=== PATIENT | female | born 1950 | race Caucasian/White ===

== ENCOUNTER 2016-12-26 06:34 | Inpatient (IN) | payer MEDICARE ==
--- NOTE | 2016-12-19 12:20 | NUR ---
JOINT CAMP Patient attended Joint Camp at [facility] in preparation for left knee replacement. Patient is from home and has 5 stairs into the home and 13 stairs inside the home. Patient's Rahul Funk will be assisting after surgery and will be the one to transport patient home on day of discharge. Patient has never received Home Health services, [facility] or Outpatient therapy. Patient has bath bench, Elevated toilet seat and walker at home.
[2016-12-26] VITALS (14 sets, daily range): BP systolic 127–175; BP diastolic 53–96; PULSE 57–84; RESP 12–18; O2SAT 92–98
[~2016-12-26] VITALS: Ht 152.4 cm; Wt 92.4 kg
[~2016-12-26 06:34] MED LIST: ALBU8.5H2 INHALATION; ASPI-973 PO; Bupivacaine Liposome 1.3% 20 mL Inj INFILTRATE ONE; CeFAZolin 2 Gm/50 mL D5W IV Premix IV ONE; DILT180C53 PO; FOLI0.4T2 PO; HYG25 PO; LOSA100T29 PO; Lactated Ringer's 1,000 ML IV SCH; Vancomycin Inj 1,750 MG in 0.9% Sodium Chloride 500 ML IV ONE; [UNRECOGNIZED DRUG - OTHER]
[2016-12-26] MEDS ORDERED: Vancomycin 1,000mg/200 mL NS IV ONE (06:38)
[2016-12-26] MEDS ORDERED: Lactated Ringer's 1,000 ML IV ONE (06:45)
--- NOTE | 2016-12-26 06:56 | PCM.HPANE ---
Patient Data Surgeon Admitting Provider: Attending Provider:Nirmal Pruitt MD Primary Care Physician:Rigo Harris MD Other Provider:[facility] Reason for Visit Left Knee Arthritis Ht/WT & BMI Height (Feet): 5 Height (Inches): 0 Weight (Kilograms): 91.62 Body Mass Index 39.00 Allergies Coded Allergies: latex (Verified Allergy, Intermediate, Rash, 12/20/16) Uncoded Allergies: NITROFURAN (Allergy, Severe, Hives, 12/20/16) PENICILLIN (Allergy, Mild, Nausea and vomition, 12/20/16) Past Anesthesia History Anesthesia History: Denies:: Abnormal Airway, Anesthesia Reactions, Difficult Intubation, Fam Anesthesia Reaction, Fam Malignant Hypertherm, Malignant Hyperthermia Diabetes History Hx Diabetes?: No MRSA MRSA: No Medications Blood Thinner: Aspirin Last Dose Blood Thinner: Dec 20, 2016 Reported Medications Folic Acid 0.4 Mg Tablet0.4 Mg PO 12/20/16 [cranb] No Conflict Check 12/20/16 Albuterol HFA (Proair HFA)8.5 Gm Hfa.aer.ad2 Puffs INHALATION Q4H #1 INHALER 12/20/16 Losartan Potassium 100 Mg [id number] Mg PO 12/20/16 Chlorthalidone 25 Mg [id number] Mg PO DAILY #30 TABLET 12/20/16 Diltiazem ER (Cartia XT)180 Mg Cap.[id number] Mg PO DAILY 12/20/16 Aspirin 81 Mg [id number] Mg PO DAILY Ref 0 12/20/16 History History of ENT Problems?: Yes HEENT History: Denies:: Abnormal Airway Cataracts Difficult Intubation Dysphagia Glaucoma Hearing Problem Sinus Problem TMJ Denture Type: None Partial- Upper Partial- Lower Teeth Condition: Within Normal Limits Hx of Heart Problems?: Yes Cardiovascular History: Positive for:: Hypertension (Chlorthalidone, Cartia) Denies:: Abdominal Aortic Aneurism Chest Pain Congestive Heart Failure Coronary Artery Disease Edema Heart Murmur Irregular Heartbeat Pacemaker Peripheral Vascular Rheumatic Fever Thrombophlebitis Valvular Heart Disease Hx of Respiratory Problem?: Yes Respiratory History: Positive for:: Use of Inhalers / NEBS (Pro Air) Denies:: Asthma COPD Chest Surgery Cough Dyspnea Emphysema Hemoptysis Oxygen Administration Pneumonia Pulmonary Embolism Tuberculosis Use of C-PAP Machine Hx Neurologic Problems?: No Hx of GI Problems?: No Gastrointestinal History: Denies:: Cirrhosis Diverticulitis Gall Bladder Disease Gastroesphageal Reflux Gastrointestinal Bleeding Heartburn Hepatitis Hiatal Hernia Liver Disease Rectal Bleeding Hx of Problems?: No Genitourinary History: Denies:: HX of Hemodialysis Kidney Stones Urinary Tract Infection HX of Peritoneal Dialysis: No Skin History: Denies:: History Skin Disorders? Pressure Ulcers Hx Musculoskeletal Problems?: Yes Musculoskeletal History: Positive for:: Degenerative Joint (reason for admission) Osteoarthritis (knee) Denies:: Back Injury Fibromyalgia Joint Replacement Musculoskeletal Trauma Myasthenia Gravis Rheumatoid Arthritis Systemic Lupus Hx of Psycho/Social Problems?: No Hx Surgeries?: Yes (left arm elbow repair 30 yrs ago) Hx Any Other Health Problems?: Yes Other History: Denies:: Cancer Endocrine Disease Hospitalization Thyroid Disease History Blood Transfusions: Positive for:: Accept Blood Products? Denies:: Blood Transfuse Reaction Blood Transfusions Hx Diabetes: No Stop/Bang S-Snoring: Do You Snore Loudly: No T-Tired: feel tired, fatigued: No O-Obsered: Observed not breath: No P-Blood Pressure: treated: Yes A- Age over 50: Yes N- Neck Large Circumference: No G- Gender Male: No Risk Assessment Category Category 1A: Patient has history of documented sleep apnea, and HAS NOT received any narcotic, sedative or anesthesia administration during this stay. Category 1B: Patient has history of documented sleep apnea, and HAS received any narcotic , sedative or anesthesia administration during this stay Category 2: Patient has SUSPECTED Obstructive Sleep Apnea, and HAS received any narcotic , sedative or anesthesia administration during this stay. Category 3: Patient has SUSPECTED Obstructive Sleep Apnea and HAS NOT received narcotic, sedative or anesthesia administration during this stay. Category 4: Outpatient in Procedural Areas with known sleep apnea or who screen positive for High Risk via the STOP/BANG questionnaire. Exam Exam General Appearance: Alert, Oriented X3, Cooperative, Moderate Distress HEENT/AIRWAY: MP 2, Neck Movement (from), Mouth Opening (wnl) Lungs: Clear to Auscultation Heart: Exam Unremarkable Plan Impression Patient chart reviewed, patient interviewed and anesthestic plan with risks, benefits, and alternatives discussed, and informed consent obtained. ASA Physical Status: ASA2 Mod Systemic Disease Anesthetic Plan: Regional Block, SAB Bene/Risks/Altern/Consents: Yes HP Complete Prior to Induction: Yes Benny Perez MD Dec 26, 2016 06:56
[2016-12-26] MEDS ORDERED: Bupivacaine Liposome 1.3% 20 mL Inj INFILTRATE ONE (07:54)
[2016-12-26] MEDS ORDERED: Bupivacaine-MPF 0.25%/EPI 30 mL Inj INFILTRATE ONE (07:54)
[2016-12-26] MEDS ORDERED: Gentamicin 40 mg/mL 2 mL Inj IRRIGATION ONE (07:54)
[2016-12-26] MEDS ORDERED: Lactated Ringer's 1,000 ML IV SCH (08:04)
[2016-12-26] MEDS ORDERED: Lactated Ringer's 500 ML IV PRN (08:04)
[2016-12-26] MEDS ORDERED: Dexamethasone 4 mg/mL Inj IVPUSH PRN (08:05)
[2016-12-26] MEDS ORDERED: fentaNYL-PF 50 mCg/mL 2 mL Inj IVPUSH PRN (08:05)
[2016-12-26] MEDS ORDERED: HYDROmorphone 1 mg/mL Inj IVPUSH PRN (08:05)
[2016-12-26] MEDS ORDERED: Phenylephrine 10,000 mCg/mL Inj IVPUSH PRN (08:05)
[2016-12-26] MEDS ORDERED: EPHEDrine Sulfate 50 mg/mL Inj IVPUSH PRN (08:05)
[2016-12-26] MEDS ORDERED: hydrALAZINE 20 mg/mL Inj IVPUSH PRN (08:05)
[2016-12-26] MEDS ORDERED: Ondansetron 2 mg/mL 2 mL Inj IVPUSH PRN (08:05)
[2016-12-26] MEDS ORDERED: Labetalol 5 mg/mL 4 mL Inj IV PRN (08:05)
[2016-12-26] MEDS ORDERED: Atropine 0.4 mg/mL Inj IVPUSH PRN (08:05)
[2016-12-26] MEDS ORDERED: Albuterol 2.5 mg/3 mL Inhalation Solution NEB PRN ×2 (09:40→11:15)
[2016-12-26 10:25] LABS: APPEARANCE,URINE HAZY (CLEAR,HAZY); COLOR,URINE STRAW (YELLOW)
[2016-12-26 10:26] LABS: OCCULT BLOOD,URINE NEGATIVE (NEGATIVE); PH,URINE 6.5 (5.0-8.0); UROBILINOGEN,URINE NORMAL (NORMAL)
--- NOTE | 2016-12-26 10:34 | OP ---
[address] [address] OPERATIVE REPORT PATIENT: IVANIA FRANK : 1950 MR#: [id number] ADMIT: 12/26/2016 JOB ID: [id number] DATE OF SURGERY: 12/26/2016 SURGEON: Nirmal Pruitt M.D. DELIVERY TECHNICIAN: eLx Chaney. Stain Sprayer required due to the complexity of the operation. PREOPERATIVE DIAGNOSIS(ES): Arthritis left knee with a large lateral femoral condylar lesion. POSTOPERATIVE DIAGNOSIS(ES): Arthritis left knee with a large lateral femoral condylar lesion. PROCEDURE: Left total knee replacement. SPECIMENS: Biopsy specimen sent from a lesion for pathological analysis. DESCRIPTION OF PROCEDURE: The patient was prepped and draped in the usual sterile fashion. An anteromedial approach made to the knee. An effusion was encountered. The patella was benign in appearance. The patella was subluxed laterally, cut transversely, sized to a 29 and drill holes were made. Patellar protection plate utilized. Drill hole placed in the distal femur 5 degree valgus. Distal femoral cut was made. The femur was sized to a 5 chamfer cutting block, which was fixed in appropriate position, rotation and chamfer cuts were made. All meniscal tissue and osteophytes were subsequently excised from the knee. The tibial guide was placed and a standard tibial cut was made. The tibia was sized to D Persona tibial component. Trial reductions performed. A 11 mm polyethylene produced excellent range of motion, balance, soft tissue tension and alignment. Pressurized lavage was utilized followed by pressurized cementation of the components. Excess cement removed during the curing process. Final construct assembled. Tourniquet was let down. Hemostasis was achieved and a deep Hemovac drain was left. The wounds were then bathed in dilute Betadine solution per protocol which was thoroughly lavaged. Deep closure with #2 Quill deep followed by 2-0 Vicryl, 3-0, and a 4-0 intracuticular stitch. Standard postoperative plan with followup on biopsy results. 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
--- NOTE | 2016-12-26 10:35 | PCM.ANEP1 ---
Post Anesthesia PACU Phase 1 Assessment Vital Signs Vital Signs Date Time Temp Pulse Resp B/P Pulse Ox O2 Delivery O2 Flow Rate FiO2 12/26/16 10:30 57 12 136/63 96 Nasal Cannula 12/26/16 10:25 36.2 60 14 141/56 95 Nasal Cannula 2 12/26/16 10:15 58 12 148/57 95 Nasal Cannula 2 12/26/16 10:10 65 14 157/67 97 Nasal Cannula 2 12/26/16 10:05 60 16 127/82 97 Nasal Cannula 2 12/26/16 10:02 12 98 12/26/16 10:00 59 15 156/53 96 Nasal Cannula 2 12/26/16 09:55 79 14 139/96 98 Nasal Cannula 2 12/26/16 09:50 74 14 148/87 97 Nasal Cannula 2 12/26/16 09:45 36.0 67 14 136/62 92 Room Air 12/26/16 07:11 36 65 17 175/61 97 Room Air Anesthetic Administered: Regional Block, SAB Level of Alertness: Awake, talking CRUZ's with Equal Strength: No Pain: No Nausea or Vomiting: No CV Function & Hydration Stable: Yes Airway Device: Oxygen Delivery: Room Air Lungs: Clear to Auscultation, Normal Air Movement Dermatome Level: L3,4 (Thigh) PACU Phase 2 Assessment Complications: No Follow up Care: No Patient Instructions Provided: N/A Benny Perez MD Dec 26, 2016 10:35
--- NOTE | 2016-12-26 10:50 | DRSVH ---
PROCEDURE: X-RAY LEFT KNEE, ONE OR TWO VIEWS ([id number]) INDICATIONS: CHECK PLACEMENT POST TOTAL KNEE TECHNIQUE: 2 view(s) of the knee acquired. [facility]2016, 13: 17. FINDINGS: Bones: Patient is status post knee joint arthroplasty. Hardware components are in expected position s. Visualized bony structures are intact. No periprostatic fractures. Soft tissues: Overlying postoperative changes are noted. No unexpected radiopaque foreign bodies ar e evident. IMPRESSION: Expected postoperative changes related to a left knee arthroplasty. Dictated by: Matt Tripp M.D. on 12/26/2016 at 9:47 Approved by: Matt Tripp M.D. on 12/26/2016 at 9:49
[2016-12-26] MEDS ORDERED: Ondansetron 8 mg ODT Tablet PO PRN (11:25)
[2016-12-26] MEDS ORDERED: LORazepam 0.5 mg Tablet PO PRN (11:25)
[2016-12-26] MEDS ORDERED: diphenhydrAMINE 25 mg Capsule PO PRN (11:25)
[2016-12-26] MEDS ORDERED: Alum-Mag Hydrox-Simeth 30 mL Suspension PO PRN (11:25)
[2016-12-26] MEDS ORDERED: oxyCODONE-Acetamin 5-325 mg Tablet PO PRN (11:25)
[2016-12-26] MEDS ORDERED: Sodium Biphos-Phos 133 mL Enema RECTAL PRN (11:25)
[2016-12-26] MEDS ORDERED: MetoCLOpramide 5 mg/mL 2 mL Inj IV PRN (11:25)
[2016-12-26] MEDS ORDERED: Ondansetron 2 mg/mL 2 mL Inj IV PRN (11:25)
[2016-12-26] MEDS ORDERED: Senna-Docusate 8.6-50 mg Tablet PO PRN (11:25)
[2016-12-26] MEDS ORDERED: Magnesium Hydroxide 10 mL Oral Concentration PO PRN (11:25)
--- NOTE | 2016-12-26 11:30 | NUR ---
Admit to [facility] Pt arrived on [facility] from PACU at 1100 hrs. Pt oriented x 3. Pt did not c/o pain. VSS. C/o slight nausea but declined anti-nausea medication. Spouse at the bedside. Removed pillow that was beneath pt's left knee. Later repositioned pillow beneath her lower leg to float heels and provide comfort. Gave pt ice water. Hemovac remains clamped until 1430 hrs. Care continues.
[2016-12-26] MEDS: Lactated Ringer's 1,000 ML IV SCH (11:34)
[2016-12-26] MEDS ORDERED: Propofol 10,000 mCg/mL 20 mL Inj ONE (12:07)
[2016-12-26] MEDS ORDERED: Ondansetron 2 mg/mL 2 mL Inj ONE (12:07)
[2016-12-26] MEDS ORDERED: fentaNYL-PF 50 mCg/mL 2 mL Inj ONE (12:07)
[2016-12-26] MEDS ORDERED: Ropivacaine-PF 0.5% 30 mL Inj ONE (12:07)
[2016-12-26] MEDS: HYDROcodone-APAP 5-325 mg Tablet PO PRN (12:24)
[2016-12-26] MEDS: Ketorolac 15 mg/mL Inj IV SCH ×2 (14:50→20:10)
--- NOTE | 2016-12-26 16:06 | NUR ---
Evaluation completed. Please go to "Notes" then click on "Assessments and Notes" (bottom left corner of screen). Then select appropriate discipline tab on top of screen.
[2016-12-26] MEDS: CeFAZolin 2 Gm/50 mL D5W IV Premix IV SCH (16:12)
[2016-12-27 00:10] VITALS: BP 152/75; PULSE 78; RESP 17; O2SAT 96
[2016-12-27] MEDS: CeFAZolin 2 Gm/50 mL D5W IV Premix IV SCH (00:51)
[2016-12-27] MEDS: Lactated Ringer's 1,000 ML IV SCH ×2 (02:09→20:36)
[2016-12-27] MEDS: Ketorolac 15 mg/mL Inj IV SCH (02:09)
--- NOTE | 2016-12-27 03:16 | NUR ---
Pain Rating pain to left knee 2-08/30. Receiving scheduled IV Toradol with effective results. Has refused multiple offers for PRN pain medications to help with breakthrough pain. Education provided in regards to pain medications/pain relief. States understanding and will ask for pain meds if/when needed. Addendum: 12/27/16 at 0543 by MITUL SAGE RN IVF total this shift= 1127 ml. Pump not cleared on previous shift.
[2016-12-27 05:10] VITALS: BP 166/77; PULSE 90; RESP 19; O2SAT 92
[2016-12-27 06:03] LABS: BASOPHILS % (AUTO) 0.3 % (0-3); EOSINOPHILS % (AUTO) 1.8 % (0-5); Mean Corpuscular Hemoglobin 28.9 pg (27.0-35.0); Mean Corpuscular Volume 87.3 fL (81-100); NEUTROPHILS % (AUTO) 74.8 % (40-74); Platelet Count 174 bil/L (150-400)
[2016-12-27] MEDS ORDERED: Vancomycin Inj 1,250 MG in 0.9% Sodium Chloride 250 ML IV ONE (07:00)
[2016-12-27] MEDS ORDERED: Diltiazem CD 180 mg ER24 Capsule PO SCH ×2 (08:30→21:00)
[2016-12-27] MEDS: HYDROcodone-APAP 5-325 mg Tablet PO PRN ×3 (08:47→23:50)
[2016-12-27] MEDS: hydrOXYzine Pamoate 25 mg Capsule PO PRN ×2 (11:25→21:58)
--- NOTE | 2016-12-27 13:32 | PCM.PNORTH ---
Subjective Date of Service: Dec 27, 2016 Visit Information: Reason for Visit Left Knee Arthritis Surgery/Surgery Date L TKA 12/26/16 Post-Op Day # Date of Admission: Dec 26, 2016 at 10:47 Hospital Day # Subjective Found patient awake and alert this morning and resting comfortably in bed. No complaints of pain at this time. Discussed pain control with patient and possible change in medication. Also advised patient that she needs to take this medication regularly to maintain her pain control and should not wait an extended period of time in between doses or she will continue to have pain control problems. We have discussed the fact that she is prepared for outpatient physical therapy to begin soon after discharge. She and her are planning for their discharge likely tomorrow and I have encouraged him to participate with physical therapy and to discuss getting into his pickup truck and possibly practicing this with a step. Postop General: No Shortness of Breath, No Chest Pain Pain Management: PO Objective Exam Objective Alert and oriented 3 and pleasant. Interoperative dressing is clean dry and intact. Calf and thigh are soft and nontender. Toe wiggle and sensation are intact at the left lower extremity distally Srivastava catheter is absent Hemovac drain is present and is discontinued today. Right lower extremity SCD in place. Limited gait (a few steps) with formal physical therapy Vital Signs and I/O Vital Sign - Last Date Time Temp Pulse Resp B/P Pulse Ox O2 Delivery O2 Flow Rate FiO2 12/27/16 13:01 Room Air 12/27/16 05:10 36.9 90 19 166/77 92 12/26/16 10:25 2 Intake and Output 12/26/16 12/26/16 12/27/16 Cumulative From/Thru 15:00 23:00 07:00 12/20/16 11:07 - 12/27/16 05:42 Intake Total 860 ml 640 ml 2327 ml 4327 ml Output Total 160 ml 210 ml 1000 ml 1370 ml Balance 700 ml 430 ml 1327 ml 2957 ml Intake Oral 640 ml 1200 ml 1840 ml IV Total 860 ml 1127 ml 2487 ml Output Urine Total 110 ml 200 ml 1000 ml 1310 ml Drainage Total 10 ml 0 ml 10 ml Estimated Blood Loss 50 ml 50 ml Lab & Micro Results Laboratory Tests Test 12/27/16 05:35 White Blood Count 6.1th/mm3 (3.8-10.1) Red Blood Count 3.77mil/mm3 (3.90-5.20) Hemoglobin 10.9g/dL (12.0-15.6) Hematocrit 32.9% (35.0-46.0) Mean Corpuscular Volume 87.3fL (81-100) Mean Corpuscular Hemoglobin 28.9pg (27.0-35.0) Mean Corpuscular Hemoglobin Concent 33.1% (32.0-37.0) Red Cell Distribution Width 14.1% (12.3-15.4) Platelet Count 174bil/L (150-400) Neutrophils (%) (Auto) 74.8% (40-74) Lymphocytes (%) (Auto) 15.6% (14-46) Monocytes (%) (Auto) 7.0% (4-12) Eosinophils (%) (Auto) 1.8% (0-5) Basophils (%) (Auto) 0.3% (0-3) Microbiology 12/26/16 Urine Culture - Preliminary, Resulted Result Diagram: 12/27/16 0535 General Appearance: Alert, Oriented X3, Cooperative, No Acute Distress Extremities: No Compartment Syndrom Noted, Thigh & Calf Soft/Nontender Postop Sensory Motor: Distal Motor Intact, Movement in Toes, Distal Sensation Intact SURGICAL WOUND : Drain Location Body Site: Knee Wound Drainage Type: Hemovac Activity: Activity per PT, Ambulate with PT (weightbearing as tolerated on the left lower extremity using front wheeled walker) Catheters: None Assessment & Plan Impression Patient is a 66-year-old female who is undergone a left total knee arthroplasty performed on 12/26/2016 Dr. Nirmal Pruitt. Patient had refused pain medication for a number of hours postoperatively and has experienced increased pain on resolution of her block. Problems: Plan Postop day #1 from left total knee arthroplasty performed on 12/26/[address] Nirmal Pruitt. Continue weightbearing as tolerated on the left lower extremity using front- wheeled walker. Continue formal physical therapy for mobility, gait and safety. Patient has arranged outpatient therapy to begin soon after discharge. Continue by mouth pain medication in the form of Percocet 5 and Vistaril. Patient has had pain control issues thus far and we will institute the aforementioned pain control regime. Continue ASA 81 mg EC by mouth twice a day 6 weeks postop for DVT prophylaxis. Hemovac drain is in an working today and is discontinued this afternoon. Nursing please fit bilateral thigh-high JABIER hose as ordered today. Fit right today and fit left on postop day 2 after dressing change. Nursing please move patient Percocet 5/325 and Vistaril for pain control. Nursing: A prescription for anticipated pain control medications is placed in chart and if these are working for the patient is maybe given to the patient's so that he may require these today so that on discharge they will be available to them. Follow-up in 2 weeks at [facility] orthopedic clinic on prearranged appointment with mid-level provider for wound check and suture removal. Follow-up in 6 weeks at [facility] orthopedic clinic on prearranged appointment with Dr. Nirmal Pruitt with x-ray two-view left knee on arrival. Anticipate discharge to home with spouse's caregiver on postop day #2, 2016. VTE Prophylaxis: SCDs (right lower extremity only), JABIER Hose (bilateral thigh- high JABIER hose left to be fitted on postop day #2 post bandages changed), Other ( ASA 81 mg EC by mouth twice a day 6 weeks postop for DVT prophylaxis) Ryne Caldwell PA-C Dec 27, 2016 13:32
[2016-12-27 15:15] VITALS: BP 152/76; PULSE 84; RESP 18; O2SAT 94
--- NOTE | 2016-12-27 16:52 | NUR ---
Nausea Pt reported that she felt nauseous last night and thought that it was caused by the hydrocodone. Administered 5 mg PO oxycodone for pain today with good results. Pt reports the nausea is gone. Pt is getting good pain relief with the oxycodone.
[2016-12-27 20:28] VITALS: BP 183/81; PULSE 99; RESP 20; O2SAT 95
[2016-12-27 23:52] VITALS: BP 160/72; PULSE 77
--- NOTE | 2016-12-28 03:19 | NUR ---
Pain Required 2 [place] with Vistaril for pain control, reports improved pain management. Able to transfer and walk with FWW to BR with one to assist. Cannot tolerate SCD to affected leg as it increases pain significantly; reminded to do frequent ankle motions. Hourly rounding ongoing.
[2016-12-28] MEDS: HYDROcodone-APAP 5-325 mg Tablet PO PRN ×2 (05:06→10:17)
[2016-12-28 05:24] VITALS: BP 156/72; PULSE 75; RESP 18; O2SAT 94
[2016-12-28 08:20] VITALS: BP 166/84; PULSE 80; RESP 18; O2SAT 94
--- NOTE | 2016-12-28 09:23 | NUR ---
NEHEMIAS signed. Sabi Luke MAGISTERIAL DISTRICT JUDGE
[2016-12-28] MEDS: hydrOXYzine Pamoate 25 mg Capsule PO PRN (10:17)
--- NOTE | 2016-12-28 10:26 | PCM.PNORTH ---
Subjective Date of Service: Dec 28, 2016 Visit Information: Reason for Visit Left Knee Arthritis Surgery/Surgery Date L TKA 12/26/16 Post-Op Day # 2 Date of Admission: Dec 26, 2016 at 10:47 Hospital Day # Subjective Patient has done quite well with physical therapy. She ambulated 200 feet this morning and has done stairs. She is currently resting in bed. She feels that she is ready for discharge. She has outpatient physical therapy scheduled to start next week. Her has arranged her home with assistive medical equipment. Postop General: No Shortness of Breath, No Chest Pain Pain Management: PO Objective Exam Objective Patient is seen lying in bed Vital Signs and I/O Vital Sign - Last Date Time Temp Pulse Resp B/P Pulse Ox O2 Delivery O2 Flow Rate FiO2 12/28/16 08:20 36.8 80 18 166/84 94 Room Air 12/26/16 10:25 2 Intake and Output 12/27/16 12/27/16 12/28/16 Cumulative From/Thru 15:00 23:00 07:00 12/20/16 11:07 - 12/27/16 17:38 Intake Total 422 ml 800 ml 5549 ml Output Total 400 ml 1770 ml Balance 422 ml 400 ml 3779 ml Intake Oral 800 ml 2640 ml IV Total 422 ml 2909 ml Output Urine Total 400 ml 1710 ml Drainage Total 10 ml Estimated Blood Loss 50 ml Lab & Micro Results Microbiology 12/26/16 Urine Culture - Final, Complete Escherichia Coli Result Diagram: 12/27/16 0535 General Appearance: Alert, Oriented X3, Cooperative, No Acute Distress Extremities: Distal Pulses Palpable, No Compartment Syndrom Noted, Thigh & Calf Soft/Nontender Postop Sensory Motor: Distal Motor Intact, Distal Sensation Intact SURGICAL WOUND : Wound Location/Description Left knee: Surgical dressing is removed. There is dried serous drainage on the bandage. There is no current drainage. The wound is intact. Steri-Strips are intact. The wound is cleansed with hydrogen peroxide. The wound is dressed with Silverlon and a nylon dressing. New dressing was placed over the drain wound with 2 x 2 gauze and Tegaderm. Dressing & Drainage Status: Changed Activity: Activity per PT, Ambulate with PT (weightbearing as tolerated on the left lower extremity using front wheeled walker) Catheters: None Assessment & Plan Impression POD #2 left total knee arthroplasty Problems: Plan Weightbearing: Weightbearing as tolerated with walker DVT prophylaxis: aspirin 81 mg once a day 6weeks Physical therapy: Patient has made excellent progress with therapy and will be discharged home this afternoon Wound care: Dressing change by PA today Nursing: Please apply thigh-high compression stocking to left lower extremity prior to discharge Discharge plan: Discharge home today. Start outpatient physical therapy next week The patient's regarding on her prescriptions filled. Discharge instructions were reviewed Follow-up plan: In 2 weeks at [facility] with ABRIL for wound check and at [address] Pruitt with x-rays Pain Management: Percocet, oxycodone, [place], vistaril, toradol VTE Prophylaxis: SCDs (right lower extremity only), JABIER Hose (bilateral thigh- high JABIER hose left to be fitted on postop day #2 post bandages changed), Other ( ASA 81 mg EC by mouth twice a day 6 weeks postop for DVT prophylaxis) Resuscitation Status: CPR: Attempt Resuscitation MamouMaribel Han PA-C Dec 28, 2016 10:26
--- NOTE | 2016-12-28 10:28 | NUR ---
Social Work- Initial Assessment/Multi-Disciplinary Rounds/ Readiness for Discharge Data: See Initial Assessment. Pt is a 66 year old female admitted 12/26/16 for left knee arthritis. Pt is POD 2 total arthroplasty. Pt discussed in AM rounds with senior technical business analyst. Pt is progressing well with PT and pt's is supportive. Pt is likely to discharge today but may discharge tomorrow. No social work needs identified. Pt's readmit risk score is 1 low risk. Pt's NOK is Joe Funk [phone]. Pt's insurance is [employer]. SW met with pt and at bedside regarding discharge plan, SW role explained. Pt alert and oriented x3. Pt's capacity for self-care assessed. Pt resides in [place] 6 months of the year and [place] 6 months of the year. Pt's home in [place] has multiple living spaces that can be accessed with limited stairs. Pt's has arranged for her to stay in the extra bedroom that is more accessible. Pt's reports that she has a walker, cane, over the toilet seat, bed rail/grab bar at home. Pt's stairs have railings as well. Pt uses no DME at baseline and drives. Pt is independent at baseline. Pt travels often with her . Pt's is independent as well. Pt has no HH or SNF history. Pt has no LTC or VA benefits. Pt's DPOA is complete but not on file, SW encouraged pt to complete this. Pt confirms that she has her outpt PT scheduled already in [place]. PT has evaluated pt and she is expected to progress to return home. Pt denied any concerns at this time. SW provided phone number and plan on whiteboard. SW provided Discharge planning checklist and instructed pt to contact SW if she has needs identified in the booklet. At this time, no concerns identified for pt's capacity for self-care. Pt to discharge home with to transport via POV, no anticipated discharge needs identified. SW will continue to follow if needs arise. Assessment: Pt who is independent at baseline and whose is available to support. Plan: Pt to discharge home with to transport via POV, no anticipated discharge needs identified. SW will continue to follow if needs arise. Sabi Ti, ELECTRONIC PAGE MAKEUP SYSTEM OPERATOR Addendum: 12/28/16 at 1034 by HARSH PABON Amended: Links added.
--- NOTE | 2016-12-28 12:31 | PCM.DIORTH ---
Ortho Discharge Instruction Date of Service: Dec 28, 2016 Dates of Hospitalization Date of Hospital Admission Dec 26, 2016 at 10:47 Providers Admitting Physician: Nirmal Pruitt MD Primary Care Physician: Rigo Harris MD Attending Physician: Nirmal Pruitt MD Diet Discharge Diet: No restrictions Activity Discharge Activity-General: Balance rest and activity, Elevate & ice extremity , Ice incision 3-5 time/day for 20min Left Lower Extremity: Weight Bearing as tolerated Discharge Assist Device: Front Wheeled Walker Dressing and Incisional Care Discharge Dressing Care: Keep dressing clean, dry & intact Discharge Hygiene: May shower (see instructions below) Additional Instructions Discharge Instructions Balance rest and activity. Get up every hour and do some exercise for your knee , either motion exercises, or walking Ice the knee 6-10 times a day. The leg may swell more later in the day as you become more active. You may need to lay down every afternoon and elevate the leg above the level of you heart. Start outpatient physical therapy next week as scheduled. Dressing change: Every 2-3 days, remove the white adhesive dressing. Save the silver dressing and handle only by the corners. Reapplied a silver dressing silver side towards the skin, and apply a new adhesive dressing. Leave the Steri-Strips in place until your two-week postop appointment. On Friday the patient may shower if the wound has no drainage present. Wound should be wrapped in plastic to shower for 2 weeks after surgery. Follow Up Plan Follow Up Plan Follow-up at [facility] in 2 weeks with ABRIL for wound check, and at [address] Pruitt with x-rays Call your provider for: Fever, Chills, Shortness of breath, Vomitting, Drainage at incision, Wound redness (that is spreading), Increasing pain (for no reason) Maribel Jaramillo PA-C Dec 28, 2016 12:31
[2016-12-28] MEDS ORDERED: ASPI-973 PO (12:35)
[2016-12-28] MEDS ORDERED: HYDR-3797 PO (12:35)
[2016-12-28] MEDS ORDERED: DOCU-41 PO (12:35)
[2016-12-28] MEDS ORDERED: OXYC1TAB24 PO (12:35)
--- NOTE | 2016-12-28 12:37 | PCM.DC.ORT ---
Discharge Summary Date of Service: Dec 28, 2016 Date of Hospital Admission: Dec 26, 2016 at 10:47 Date of Surgery: Dec 26, 2016 Date of Discharge: Dec 28, 2016 Reason for Hospitalization: Left knee arthritis Procedures Performed: Left total knee arthroplasty Hospital Course: The patient was admitted to the hospital on 12/26/2016 and underwent the above procedure. Antibiotic prophylaxis consisting of Ancef and vancomycin. The surgeon was Dr. Pruitt. A Srivastava was placed perioperatively. Patient tolerated the procedure well and was transferred to recovery room in stable condition. Srivastava was discontinued on postop day 1. Patient had physical therapy to work on ambulation and transfers. Weightbearing as tolerated with walker. Pain was managed with Dilaudid, Percocet, Vistaril, Toradol and [place]. DVT prophylaxis: Aspirin 81 mg twice a day, SCDs, JABIER ch Patient progressed well with physical therapy and ambulated 200 feet and did stairs. On POD-2 was discharged home with her to assist in her care. Follow-up: at [facility] 2 weeks postop for wound check and at [address] Pruitt with x-ray Diagnosis at Time of Discharge status post left total knee arthroplasty Asthma Chronic hypertension Problems: Disposition: Discharged home in stable condition with her to assist in her care. Discharge Instructions: Diet Discharge Diet: No restrictions Activity Discharge Activity-General: Balance rest and activity, Elevate & ice extremity , Ice incision 3-5 time/day for 20min Left Lower Extremity: Weight Bearing as tolerated Discharge Assist Device: Front Wheeled Walker Dressing and Incisional Care Discharge Dressing Care: Keep dressing clean, dry & intact Discharge Hygiene: May shower (see instructions below) Additional Instructions Discharge Instructions Balance rest and activity. Get up every hour and do some exercise for your knee , either motion exercises, or walking Ice the knee 6-10 times a day. The leg may swell more later in the day as you become more active. You may need to lay down every afternoon and elevate the leg above the level of you heart. Start outpatient physical therapy next week as scheduled. Dressing change: Every 2-3 days, remove the white adhesive dressing. Save the silver dressing and handle only by the corners. Reapplied a silver dressing silver side towards the skin, and apply a new adhesive dressing. Leave the Steri-Strips in place until your two-week postop appointment. On Friday the patient may shower if the wound has no drainage present. Wound should be wrapped in plastic to shower for 2 weeks after surgery. ([cranb]) Albuterol HFA (Proair HFA) 8.5 Gm Hfa.aer.ad 2 PUFFS INHALATION Q4H Aspirin (Aspirin) 81 Mg Tablet 81 MG PO BID Chlorthalidone (Chlorthalidone) 25 Mg Tablet 25 MG PO DAILY Diltiazem ER (Cartia XT) 180 Mg Cap.er.24h 180 MG PO DAILY Docusate Sodium (Colace) 100 Mg Capsule 100 MG PO BID PRN PRN For Constipation Folic Acid (Folic Acid) 0.4 Mg Tablet 0.4 MG PO Hydroxyzine Pamoate (HydrOXYzine Pamoate) 25 Mg Capsule 25-50 MG PO Q6H PRN PRN For Restlessness Losartan Potassium (Losartan Potassium) 100 Mg Tablet 100 MG PO oxyCODONE-Acetaminophen 5-325 mg (oxyCODONE-Acetaminophen 5-325 mg) 1 Each Tablet 1-2 TAB PO Q4H PRN PRN For Severe Pain Maribel Jaramillo PA-C Dec 28, 2016 12:37
--- NOTE | 2016-12-28 13:13 | NUR ---
Social Work- Discharge Data: EMR reviewed. Pt is medically ready for discharge today. Discharge orders are active. Pt to discharge home with to transport. No social work needs or concerns identified. Assessment: Pt who is independent at baseline and whose is available to support. Plan: Pt to discharge home with to transport via POV, no anticipated discharge needs identified. Pt will Follow-up at [facility] in 2 weeks with PA for wound check, and at [address] Pruitt with x-rays. This information is listed in D/C Instructions [employer]
--- NOTE | 2016-12-28 14:11 | NUR ---
Discharge To home via private vehicle with and daughter at 14:00. Steady transfer to wheelchair and car. Pt and family express understanding of all discharge instructions and care notes, including followup and medications. Rx previously given to . IV discontinued intact. JABIER hose on both legs. All belongings sent with pt.
== END 2016-12-28 13:55 | disposition home or self-care (01) | DRG 470 ==
LOC: SAS 06:34 → OSC 10:47
PROVIDERS: ADMIT Orthopaedic Surgery; ATTEND Orthopaedic Surgery
PROC: 0SRD0J9 Replacement of Left Knee Joint with Synthetic Substitute, Cemented, Open Approach (ICD-10-PCS; principal; 2016-12-26 07:30)
DX: M17.12 Unilateral primary osteoarthritis, left knee (principal); I10 Essential (primary) hypertension; J45.909 Unspecified asthma, uncomplicated